=== PATIENT | female | born 1955 | race Two or more races ===

== ENCOUNTER 2019-03-19 09:56 | Emergency (ER) | payer MEDICAID ==
[2019-03-19 10:12] VITALS: BP 155/90
--- NOTE | 2019-03-19 10:24 | EDPHY ---
H & P Time Seen by Provider: 03/19/19 10:07 HPI/ROS: HPI Discomfort with urination. 63-year-old female by private vehicle. She presents to the emergency department with complaint of burning with urination, increased frequency and urgency ongoing since last . She gives a history of being seen in an urgent care and having a urinalysis done which showed ketones but she was not prescribed antibiotics. She also complains of mild right-sided flank pain. No fever. She has had no nausea or vomiting. She is postmenopausal. No vaginal bleeding or discharge. ROS: Constitutional: No fever, no chills. No weakness. Respiratory: No cough. No shortness of breath. Cardiac: No chest pain, no palpitations. Gastrointestinal: No abdominal pain, no vomiting, no diarrhea. Genitourinary: No hematuria. As above. Musculoskeletal: As above. No neck pain. No myalgias or arthralgias. Neurological: No headache. No focal weakness or altered sensation. Past medical history: Right knee surgery. She states she currently does not have a primary care physician because her Medicaid was just recently approved. Social history: She is here by herself. No alcohol. Nonsmoker. Physical Exam: General Appearance: Alert, no distress. This patient is responding to questions appropriately and in full sentences. This patient appears well- hydrated and well-nourished. Eyes: Pupils equal and round no pallor or injection. No lid edema, erythema or injection. Gastrointestinal: Abdomen is soft and nontender, no masses, bowel sounds normal. No focal tenderness at McBurney's point. No Cedeño sign. Neurological: Motor sensory function is grossly intact. Cranial nerves are normal. Gait is normal. Skin: Warm and dry, no rashes. Musculoskeletal: She has mild and vague right CVA tenderness on palpation. No left CVA tenderness on palpation. Extremities are symmetrical. All joints range without pain or impingement. Psychiatric: No agitation. No depression. Database: EKG: Imaging: Procedures: Emergency department course: Triage vital signs reviewed. She is moderately hypertensive. Vital signs are otherwise normal. She is afebrile. Urinalysis obtained in indicates infection. Urine will be sent to the main lab at [facility] for micro analysis and culture. The patient will be started on Keflex 500 mg four times daily. She was given her 1st dose in the emergency department. I will have her follow up with [facility] next week to establish a primary care physician relationship and to evaluate her blood pressure and get some basic blood work done as well. She is in agreement with this plan. She does feel comfortable being discharged. She understands for follow-up. Return to emergency department precautions discussed with her. All of her questions were answered. She was discharged from the emergency department in good condition. Differential Diagnosis: The differential diagnosis on this patient includes but is not limited to urinary tract infection, early pyelonephritis. This represents a partial list of diagnoses considered. These considerations are based on history, physical exam, past history, reassessment and diagnostic testing. Smoking Status: Former smoker Constitutional: Initial Vital Signs Temperature (C) 36.9 C 03/19/19 10:08 Heart Rate 86 03/19/19 10:08 Respiratory Rate 16 03/19/19 10:08 Blood Pressure 155/90 H 03/19/19 10:08 O2 Sat (%) 96 03/19/19 10:08 O2 Delivery Mode Room Air Allergies/Adverse Reactions: No Known Allergies Allergy (Verified 03/19/19 10:07) Home Medications: Medication Instructions Recorded Cephalexin [Keflex (*)] 500 mg PO Q6 7 Days cap 03/19/19 Departure - Departure Disposition: Home, Routine, Self-Care Clinical Impression: Urinary tract infection Condition: Good Instructions: Urinary Tract Infection in Women (ED) Additional Instructions: Read and follow provided instructions. Follow-up with [facility] early next week. They are next door to our emergency department here at the [facility]. Call their office this afternoon for appointment time. Explain that you need a primary care physician for your ongoing care needs and follow-up regarding her urinary tract infection which we started treatment for here in the emergency department. I also want them to check her blood pressure which is high in the emergency department. You should also have some basic blood work done. Take antibiotic as prescribed through entire course of treatment. Keflex/ cephalexin: 500 mg 4 times daily or every 6 hr for the next 7 days. Return to the emergency department for worsening symptoms, abdominal pain, worsening back pain, fever, vomiting or other serious concerns. Referrals: [facility] [Outside] - As per Instructions Prescriptions: Cephalexin [Keflex (*)] 500 mg PO Q6 7 Days cap
[2019-03-19] MEDS ORDERED: CEPHALEXIN 500 MG CAP PO ONE (10:25)
== END 2019-03-19 10:35 | disposition home or self-care (01) ==
LOC: CED 09:56
DX: N39.0 Urinary tract infection, site not specified (principal)
CPT/HCPCS: 99283-ER